=== PATIENT | male | born 1955 | race Caucasian/White ===

== ENCOUNTER → 2016-09-14 | Outpatient (CLI) | payer MEDICARE | LOC: HEART 5 09:44 | DX: R07.9 Chest pain, unspecified (principal); R42 Dizziness and giddiness; R55 Syncope and collapse; R00.2 Palpitations ==

== ENCOUNTER → 2020-06-28 | Outpatient (CLI) | payer OTHER, SELFPAY ==
[~2020-06-28] MED LIST: AMITRIPTYLINE H50 MG PO; ECOTRIN81 MG PO; ELIQUIS2.5 MG PO; FLECAINIDE ACET50 MG PO; MELOXICAM15 MG PO; NORCO 10-325 T1 EACH PO; NORCO 7.5-3251 EACH PO; NORVASC 5 MG TAB5 MG PO; PROZAC10 MG PO
== END ==
LOC: EMI 06-23 16:00
DX: M54.12 Radiculopathy, cervical region (principal); M43.12 Spondylolisthesis, cervical region; M50.21 Other cervical disc displacement, high cervical region; M50.221 Other cervical disc displacement at C4-C5 level
CPT/HCPCS: 72141

== ENCOUNTER → 2022-01-01 | Outpatient (CLI) | payer OTHER | LOC: KOH-I 13:33 | DX: M54.2 Cervicalgia (principal); G89.29 Other chronic pain; M47.812 Spondylosis without myelopathy or radiculopathy, cervical region | CPT/HCPCS: 72050 ==